=== PATIENT | male | born 1940 | race Caucasian/White ===

== ENCOUNTER 2016-11-10 11:24 | Emergency (ER) | payer OTHER ==
[~2016-11-10] VITALS: Ht 180.3 cm; Wt 100.0 kg
[~2016-11-10 11:24] MED LIST: ATEN1TAB73; LIPI40TA; LORTA5 PO; PROZ40CA; TAB-TAB
[2016-11-10 11:26] VITALS: BP 177/82; PULSE 76; RESP 24; TEMP 97.6; O2SAT 93
[2016-11-10] MEDS ORDERED: ATEN50TA PO (11:43)
[2016-11-10] MEDS ORDERED: ZOCO40TA PO (11:43)
[2016-11-10] MEDS ORDERED: HYDR25TA5 PO (11:43)
[2016-11-10] MEDS ORDERED: MOBI15TA PO (11:43)
[2016-11-10] MEDS ORDERED: [UNRECOGNIZED DRUG - CODE] PO (11:45)
[2016-11-10 11:47] VITALS: BP 156/72; PULSE 70; RESP 18; O2SAT 97
[2016-11-10] MEDS ORDERED: DEXAMETHASONE SOD PHOS 20 MG/5 ML VIAL IM ONE (12:00)
[2016-11-10] MEDS ORDERED: ACETAMINOPHEN/CODEINE 300 MG/30 MG TAB PO ONE (12:00)
[2016-11-10] MEDS ORDERED: ORPHENADRINE INJ 60 MG/2 ML AMP IM ONE (12:00)
--- NOTE | 2016-11-10 12:02 | PD ---
HPI Chief Complaint: Musculoskeletal Complaint Time Seen by Provider: 11:45 Travel History International Travel<30 days: No Contact w/Intl Traveler<30days: No Traveled to known affect area: No History of Present Illness HPI 76-year-old male presents with his for evaluation of right lower back pain. He reports chronic lower back pain ever since the 1969. He reports surgical intervention in regards to a "herniated disc" in his 70s. Symptoms worsened about 1.5 years ago and he was seen by orthopedist Dr. Dmoinique. He had a MRI of the lower back performed which revealed a "herniated disc" as well as arthritis. Surgical intervention was offered however he declined. He reports that since then the symptoms seem to come and go, occasionally flaring up. He reports that 5 days ago he was in the shower and he "jumped out" of the shower in order to go answer the phone. Since then he has had increased pain in his right lower back. Pain is a sharp pain is localized in the right lower back that comes and goes, worse when moving or sitting up, somewhat relieved when he is lying down. He denies any lower extremity numbness or tingling or weakness, bowel or bladder incontinence, saddle anesthesia, testicular or scrotal pain, abdominal pain, dysuria, hematuria, flank pain, chest pain or shortness of breath. He has been using [id number] NSAIDs with mild relief. He plans on following up with Dr. Dominique. He has no other complaints. FORMERLY [facility], [facility] Past Medical History Arthritis: Yes Blood Disorders: No Anxiety: No Depression: No Heart Rhythm Problems: No Cancer: No Cardiovascular Problems: Yes High Cholesterol: Yes Chest Pain: No Congestive Heart Failure: No Endocrine: No Glaucoma: No Genitourinary: No Hepatitis: No Hypertension: Yes Immune Disorder: No Musculoskeletal: Yes (SCIATICA, HERNIATED DISC, ARTHRITIS) Neurologic: No Psychiatric: No Reproductive: No Respiratory: No Myocardial Infarction: No Past Surgical History Abdominal Surgery: No Appendectomy: No Cardiac Surgery: No Cholecystectomy: No Ear Surgery: No Endocrine Surgery: No Eye Surgery: No Genitourinary Surgery: No Gynecologic Surgery: No Oral Surgery: No Thoracic Surgery: No Other Surgery: Yes (BACK SURG X 2 ) Social History Alcohol Use: No Tobacco Use: No Substance Use: No Allergies-Medications (Allergen,Severity, Reaction): Coded Allergies: No Known Allergies (Verified , 02/15/14) Reported Meds & Prescriptions Reported Meds & Active Scripts Active Baclofen 10 Mg Tab 10 Mg PO TID PRN Tylenol-Codeine #3 (Acetaminophen-Codeine) 300-30 mg Tab 1 Tab PO Q4H PRN Reported Doans Regular Strength (Magnesium Salicylate) 325 Mg Tab 3 Tab PO Q6H PRN Hydrochlorothiazide 25 Mg Tab 25 Mg PO DAILY Zocor (Simvastatin) 40 Mg Tab 40 Mg PO DAILY Mobic (Meloxicam) 15 Mg Tab 15 Mg PO DAILY Atenolol 50 Mg Tab 50 Mg PO DAILY Review of Systems Except as stated in HPI: all other systems reviewed are Neg Physical Exam Narrative GENERAL: Well-developed well-nourished male in no acute distress. SKIN: Warm and dry. There is no rash, no flank or periumbilical ecchymosis. HEAD: Atraumatic. Normocephalic. EYES: Pupils equal and round. No scleral icterus. No injection or drainage. CARDIOVASCULAR: Regular rate and rhythm. No murmur appreciated. RESPIRATORY: No accessory muscle use. Clear to auscultation. Breath sounds equal bilaterally. GASTROINTESTINAL: Abdomen soft, non-tender, nondistended. Hepatic and splenic margins not palpable. No palpable pulsatile masses or abdominal bruits. MUSCULOSKELETAL: No obvious deformities. The patient has point tenderness to palpation in the right sacroiliac joint. There is no tenderness to palpation along the cervical thoracic or lumbar midline spine. There is no CVA tenderness. The patient maintains 5 out of 5 muscle strength extensor hallucis longus, dorsi and plantarflexion, leg flexion and extension, hip flexion bilaterally. Negative straight leg raise bilaterally. NEUROLOGICAL: Awake and alert. No obvious cranial nerve deficits. Motor grossly within normal limits. Normal speech. Data Data Last Documented VS Vital Signs Date Time Temp Pulse Resp B/P Pulse Ox O2 Delivery O2 Flow Rate FiO2 11/10/16 11:47 70 18 156/72 97 Room Air 11/10/16 11:26 97.6 Orders Acetamin-Codeine 300-30 Mg (Tylenol-Code (11/10/16 12:00) Orphenadrine Inj (Norflex Inj) (11/10/16 12:00) Dexamethasone Inj (Decadron Inj) (11/10/16 12:00) MDM Medical Decision Making Medical Screen Exam Complete: Yes Emergency Medical Condition: Yes Medical Record Reviewed: Yes Differential Diagnosis Degenerative disc disease, sacroiliitis, herniated mucous pulposus, piriformis syndrome, compression fracture, metastasis, dissecting AAA, renal stone Narrative Course 76-year-old male with chronic lower back pain presents with worsening pain over the past 5 days localized to the right lower back. Symptoms started after rushing out of the shower in order to answer the phone. He reports that it feels like his "sciatic nerve is acting up." On examination he has point tenderness to palpation to the right sacroiliac joint, no vertebral tenderness to palpation suggest compression deformity. His abdomen is soft and nontender with no palpable pulsatile masses or bruits. He has no CVA tenderness, no testicular or scrotal pain, no hematuria. His symptoms seem to be consistent with exacerbation of chronic lower back pain. Plan is to treat him symptomatically. His reports that in the past steroid injections have been helpful. The patient be given Decadron, Norflex injections as well as Tylenol with Codeine. He is being discharged with a short course of Tylenol with codeine as well as baclofen, advised continued [id number] NSAID use as needed. Discussed signs and symptoms that would warrant returning to the emergency room. Diagnosis Primary Impression: Lower back pain Qualified Code: M54.5 - Chronic right-sided low back pain without sciatica Additional Instructions: Medication as prescribed. Do not drive or drink alcohol when taking his medications. Avoid strenuous activity, heavy lifting. Follow-up with Dr. Dominique as needed. Return for any acutely worsening symptoms. Med/Other Pt SpecificInfo: Prescription(s) given Scripts Baclofen 10 Mg Tab10 Mg PO TID PRN (MUSCLE SPASM) #15 TAB Ref 0 Prov:Domingo Lugo MD 11/10/16 Acetaminophen-Codeine (Tylenol-Codeine #3)300-30 mg Tab1 Tab PO Q4H PRN (PAIN) # 20 TAB Ref 0 Prov:Domingo Lugo MD 11/10/16 Disposition: 01 DISCHARGE HOME Condition: Stable Pavel Sanchez Nov 10, 2016 12:02
[2016-11-10] MEDS ORDERED: BACL10TA PO (12:07)
[2016-11-10] MEDS ORDERED: TYLETAB34 PO (12:07)
== END 2016-11-10 13:46 | disposition home or self-care (01) ==
LOC: NEPC 11:24
DX: M54.5 Low back pain (principal); I10 Essential (primary) hypertension; E78.00 Pure hypercholesterolemia, unspecified
CPT/HCPCS: 96372; 96374; 99283; J1100; J2360